=== PATIENT | male | born 1970 | race Hispanic/Latino ===

== ENCOUNTER 2017-01-28 13:14 | Outpatient (CLI) | payer OTHER ==
[2017-01-28] MEDS ORDERED: PROVENTIL IH ONE (13:38)
== END 2017-01-28 13:15 | disposition home or self-care (01) ==
LOC: PF 13:14
PROVIDERS: ATTEND Internal Medicine
DX: J45.909 Unspecified asthma, uncomplicated (principal); M10.071 Idiopathic gout, right ankle and foot; M10.072 Idiopathic gout, left ankle and foot
CPT/HCPCS: 94060; 94640; 94729